=== PATIENT | male | born 1995 | race African-American/Black ===

== ENCOUNTER 2020-12-14 09:00 | Emergency (ER) | payer OTHER ==
[~2020-12-14] VITALS: Ht 167.6 cm; Wt 90.0 kg
[2020-12-14] MEDS ORDERED: LIDOCAINE HCL/PF 1% 2ML VIAL ONE (09:09)
[2020-12-14 10:00] LABS: BG BASE EXCESS -1.3 mmol/L (-2.0-2.0); BG CARBOXYHEMOGLOBIN 0.3 % (0.5-1.5); BG DEOXYHEMOGLOBIN 4.5 % (0.0-5.0); BG FRACTION INSPIRED OXYGEN 21; BG METHEMOGLOBIN 0.3 % (0.0-1.5); BG OXYGEN SATURATION 95.5 % (92.0-98.5); BG OXYHEMOGLOBIN 94.9 % (94.0-97.0); BG PH 7.503 (7.350-7.450); BG PO2 71.7 mmHg (75.0-100.0); BG SAMPLE SITE RIGHT RADIAL; BG TOTAL HEMOGLOBIN 15.9 g/dL (12.0-18.0); BG VENT MODE ROOM AIR
[2020-12-14 10:16] LABS: BASOPHILS % 0.5 % (0.0-2.0); HEMOGLOBIN. 16.1 g/dL (14.0-18.0); LYMPHOCYTES % 22.5 % (20.0-50.0); MEAN CORPUSCULAR HEMOGLOBIN 29.4 pg (28.0-32.0); MEAN CORPUSCULAR VOLUME 86.3 fL (80.0-94.0); MEAN PLATELET VOLUME 7.8 fl (7.4-10.4); MONOCYTES % 6.3 % (2.0-8.0); NEUTROPHILS % 70.7 % (40.0-76.0); PLATELET 360 x1000/uL (130-400); RED BLOOD CELL COUNT 5.45 mill/uL (4.7-6.1); RED CELL DISTRIBUTION WIDTH 14.5 % (11.6-14.6)
[2020-12-14 10:23] LABS: CHLORIDE 102 mEq/L (98-107)
[2020-12-14 10:31] LABS: CREATINE KINASE 260 IU/L (39-308)
[2020-12-14] MEDS ORDERED: ACETAMINOPHEN 325MG TABLET PO ONE (11:15)
[2020-12-14] MEDS ORDERED: SODIUM CHLORIDE 0.9% 1,000 ML IV ONE (11:15)
[2020-12-14 13:32] LABS: D-DIMER 0.32 mg/L FEU (<0.50); INR 1.1; PROTHROMBIN TIME 11.5 sec (9.6-11.0)
[2020-12-14 14:50] VITALS: BP 131/88
== END 2020-12-14 14:51 | disposition short-term general hospital (02) ==
LOC: ER 09:33 → CANBEDREQ 22:21
DX: U07.1 COVID-19 (principal); R11.2 Nausea with vomiting, unspecified; I49.9 Cardiac arrhythmia, unspecified; Z90.49 Acquired absence of other specified parts of digestive tract
CPT/HCPCS: 36415; 36600; 71045; 80053; 82375; 82550; 82728; 82805; 83605; 83615; 84145; 84484; 85025; 85379; 85384; 85610; 86140; 87040; 87804; 93005; 96360; 99291; C9803; J3490; J7030; U0003; U0005; 99285